=== PATIENT | female | born 1985 | race Caucasian/White ===

== ENCOUNTER → 2016-12-04 | Outpatient (CLI) | payer BC ==
[~2016-12-04] MED LIST: CELEXA40 MG PO; NAPROSYN500 MG PO; NO HOME MEDICATIONS; NORCO 325 MG-51 TAB PO; PREDNISONE20 MG PO; PROAIR HFA0.09 MG/AC IH; SINGULAIR 110 MG/TAB PO
== END ==
LOC: MC.RAD 14:00
DX: D24.1 Benign neoplasm of right breast (principal)

== ENCOUNTER 2017-09-24 18:30 | Emergency (ER) | payer BC ==
[~2017-09-24] VITALS: Ht 167.6 cm; Wt 115.9 kg
[2017-09-24 18:31] VITALS: TEMP 98.7
[2017-09-24] MEDS ORDERED: LEXAPRO 10MG10 MG PO (18:34)
[2017-09-24] MEDS ORDERED: CATAPRES0.3 MG PO (18:34)
[2017-09-24] MEDS ORDERED: BUSPAR10 MG PO (18:34)
[2017-09-24] MEDS ORDERED: ATIVAN 0.50.5 MG/TAB PO (18:35)
[2017-09-24] MEDS ORDERED: MELATONIN5 M1 PO (18:35)
[2017-09-24 19:15] LABS: BASO # 0.1 (0.0-0.2); BASO % 0.5 % (0.0-2.0); EOS # 0.2 (0.0-0.7); EOS % 1.9 % (0-4.0); GRAN % 62.6 % (42.2-75.2); HEMOGLOBIN 14.4 g/dl (12.5-16.0); LYMPH # 3.3 (1.2-3.4); LYMPH % 29.3 % (20.0-51.0); MEAN CELL VOLUME 88 fl (80.0-100.0); MEAN CORPUSCULAR HEMOGLOBIN 29 pg (27.0-31.0); MEAN CORPUSCULAR HGB CONC 34 g/dl (33.0-37.0); MEAN PLATELET VOLUME 10.3 fl (7.4-10.4); MONO # 0.6 (0.1-0.6); MONO % 5.4 % (1.7-9.3); PLATELET COUNT 309 K/mm3 (130-400); RED BLOOD COUNT 4.91 M/mm3 (4.10-5.30); REDCELL DISTRIBUTION WIDTH-CV 13.6 % (11.5-14.5)
[2017-09-24 19:41] LABS: ALBUMIN 4.2 gm/dL (3.5-5.0); BILIRUBIN,TOTAL 0.5 mg/dL (0.0-1.0); C-REACTIVE PROTEIN 1.9 mg/dL (0.0-0.9); CALCIUM 8.9 mg/dL (8.4-10.2); CREATININE, serum 0.62 mg/dL (0.52-1.25); POTASSIUM 3.9 mmol/L (3.4-5.0); TOTAL PROTEIN 7.1 gm/dL (6.4-8.2)
[2017-09-24] MEDS ORDERED: NORCO 325 MG-51 TAB PO (20:58)
[2017-09-24] MEDS ORDERED: ZOFRAN ODT4 MG PO (20:58)
[2017-09-24 21:13] VITALS: BP 134/70; PULSE 70
== END 2017-09-24 21:14 | disposition home or self-care (01) ==
LOC: COL.ER 18:30
PROVIDERS: Emergency Medicine
DX: K80.80 Other cholelithiasis without obstruction (principal); Z90.710 Acquired absence of both cervix and uterus
CPT/HCPCS: J2405; J2550; J7030

== ENCOUNTER 2017-09-26 09:38 | Day surgery (SDC) | payer BC ==
[2017-09-26] VITALS (7 sets, daily range): BP systolic 115–127; BP diastolic 45–87; PULSE 78–98; TEMP 97.7–98.2
[~2017-09-26] VITALS: Ht 167.6 cm; Wt 118.6 kg
[~2017-09-26 09:38] MED LIST changes: +ATIVAN 0.50.5 MG/TAB PO; +BUSPAR10 MG PO; +CATAPRES0.3 MG PO; +LEXAPRO 10MG10 MG PO; +MELATONIN5 M1 PO; +ZOFRAN ODT4 MG PO
[2017-09-26] MEDS ORDERED: ALBUTEROL SULFAT3 M3 IH (10:02)
[2017-09-26] MEDS ORDERED: NORCO 325 MG-51 TAB PO (14:08)
== END 2017-09-26 15:25 | disposition home or self-care (01) ==
LOC: SDCO 09:38
DX: K80.10 Calculus of gallbladder with chronic cholecystitis without obstruction (principal); F41.9 Anxiety disorder, unspecified; F32.9 Major depressive disorder, single episode, unspecified; J45.909 Unspecified asthma, uncomplicated; E66.9 Obesity, unspecified; Z68.41 Body mass index [BMI] 40.0-44.9, adult; Z87.891 Personal history of nicotine dependence; G47.33 Obstructive sleep apnea (adult) (pediatric); Z85.828 Personal history of other malignant neoplasm of skin; E28.2 Polycystic ovarian syndrome; Z90.710 Acquired absence of both cervix and uterus; Z91.041 Radiographic dye allergy status; Z88.0 Allergy status to penicillin; Z91.040 Latex allergy status
CPT/HCPCS: J0330; J0690; J1100; J1170; J1885; J2250; J2405; J2550; J2704; J2710; J3010; J7120

== ENCOUNTER 2018-03-15 17:25 | Emergency (ER) | payer BC ==
[~2018-03-15] VITALS: Ht 167.6 cm; Wt 120.5 kg
[~2018-03-15 17:25] MED LIST changes: +ALBUTEROL SULFAT3 M3 IH
[2018-03-15 18:06] LABS: COLLECTION METHOD CLEAN CATCH
[2018-03-15 18:12] LABS: PH 7 (5-8); SQUAMOUS EPITHELIAL 0-2 /hpf; URINE APPEARANCE Clear; URINE BACTERIA None Seen /hpf; URINE BILIRUBIN Negative (NEGATIVE); URINE BLOOD Negative (NEGATIVE); URINE COLOR Yellow; URINE GLUCOSE Negative (NEGATIVE); URINE KETONE Negative (NEGATIVE); URINE LEUKOCYTE ESTERASE Negative (NEGATIVE); URINE NITRATE Negative (NEGATIVE); URINE PROTEIN(semi-quant) Negative (NEGATIVE); URINE RBC 0-2 /hpf; URINE UROBILINOGEN Negative (NEGATIVE)
[2018-03-15 18:28] LABS: BASO # 0.1 (0.0-0.2); BASO % 0.3 % (0.0-2.0); EOS # 0.1 (0.0-0.7); EOS % 0.4 % (0-4.0); GRAN # 14.5 (1.4-6.5); GRAN % 84.8 % (42.2-75.2); HEMATOCRIT 41.4 % (37.0-47.0); HEMOGLOBIN 14.2 g/dl (12.5-16.0); LYMPH # 1.7 (1.2-3.4); LYMPH % 9.7 % (20.0-51.0); MEAN CELL VOLUME 85 fl (80.0-100.0); MEAN CORPUSCULAR HEMOGLOBIN 29 pg (27.0-31.0); MEAN CORPUSCULAR HGB CONC 34 g/dl (33.0-37.0); MEAN PLATELET VOLUME 10.2 fl (7.4-10.4); MONO # 0.8 (0.1-0.6); MONO % 4.4 % (1.7-9.3); PLATELET COUNT 338 K/mm3 (130-400); REDCELL DISTRIBUTION WIDTH-CV 13.1 % (11.5-14.5)
[2018-03-15 18:48] LABS: ALBUMIN 4.2 gm/dL (3.5-5.0); BILIRUBIN,TOTAL 0.5 mg/dL (0.0-1.0); C-REACTIVE PROTEIN 3.3 mg/dL (0.0-0.9); CALCIUM 9.3 mg/dL (8.4-10.2); CREATININE, serum 0.64 mg/dL (0.52-1.25); POTASSIUM 3.5 mmol/L (3.4-5.0); TOTAL PROTEIN 7.5 gm/dL (6.4-8.2)
[2018-03-15] MEDS ORDERED: NORCO 325 MG-51 TAB PO (19:41)
[2018-03-15] MEDS ORDERED: ZOFRAN ODT4 MG PO (19:41)
[2018-03-15 20:00] VITALS: BP 118/71; PULSE 99; TEMP 100.2
== END 2018-03-15 20:05 | disposition home or self-care (01) ==
LOC: COL.ER 17:25
PROVIDERS: Emergency Medicine
DX: D72.829 Elevated white blood cell count, unspecified (principal); R10.31 Right lower quadrant pain; F32.9 Major depressive disorder, single episode, unspecified; Z90.710 Acquired absence of both cervix and uterus; Z98.890 Other specified postprocedural states; Z90.49 Acquired absence of other specified parts of digestive tract; Z88.0 Allergy status to penicillin
CPT/HCPCS: J1200; J1885; J2405; J2930; J7030; Q9967

== ENCOUNTER 2019-11-13 13:57 | Emergency (ER) | payer OTHER ==
[~2019-11-13] VITALS: Ht 167.6 cm; Wt 113.6 kg
[2019-11-13 14:11] VITALS: TEMP 97.8
[2019-11-13] MEDS ORDERED: PREDNISONE20 MG PO ×2 (14:22→14:25)
[2019-11-13] MEDS ORDERED: VISTARIL 2525 MG/CAP (14:22)
[2019-11-13] MEDS ORDERED: ADDERALL15 MG PO (14:24)
[2019-11-13] MEDS ORDERED: NEURONTIN100 MG/CAP (14:24)
[2019-11-13] MEDS ORDERED: CYMBALTA 30MG30 MG PO (14:24)
[2019-11-13] MEDS ORDERED: VOLTAREN 75 DR75 MG PO (14:25)
[2019-11-13 15:32] VITALS: BP 138/71; PULSE 103
== END 2019-11-13 15:25 | disposition home or self-care (01) ==
LOC: COL.ER 13:57
DX: T78.40XA Allergy, unspecified, initial encounter (principal); M79.7 Fibromyalgia
CPT/HCPCS: J2930

== ENCOUNTER 2020-07-08 11:14 | Inpatient (IN) | payer OTHER ==
[~2020-07-08] VITALS: Ht 167.6 cm; Wt 124.8 kg
[~2020-07-08 11:14] MED LIST changes: +ADDERALL15 MG PO; -ALBUTEROL SULFAT3 M3 IH; +ALBUTEROL0.83 MG/ML IH; +CYMBALTA 30MG30 MG PO; +NEURONTIN100 MG/CAP; +PHENERGAN 25 TA25 MG PO; +VISTARIL 2525 MG/CAP; +VOLTAREN 75 DR75 MG PO
[2020-07-08 14:16] VITALS: BP 127/68; PULSE 105; TEMP 99.4
[2020-07-08 16:31] LABS: INR 1.2 (0.8-3.0); LACTATE DEHYDROGENASE 727 U/L (313-618)
[2020-07-08 16:42] LABS: C-REACTIVE PROTEIN 14.5 mg/dL (0.0-0.9); TROPONIN-I < 0.012 ng/mL (0.000-0.035)
[2020-07-08 17:40] VITALS: BP 134/64; BP 134/66; PULSE 81; TEMP 97.9
--- NOTE | 2020-07-08 18:40 | NUR ---
Report received from Melody CONTRERAS. Pt lying in bed watching tv. Denies needs at this time. Call light in reach.
--- NOTE | 2020-07-08 21:15 | NUR ---
Shift assessment complete. Pt lying in bed. Currently on room air with O2 sats in mid 90s. Denies SOA at rest, reports mild SOA when ambulating to bathroom and with deep breaths. Dry cough noted. Lungs clear to auscultation, heart rate and rhythm regular, A&Ox4. Reports mild chronic pain to BLE. PRN Tylenol administered. Refilled pt's water pitcher. Denies other needs at this time. Call light in reach.
[2020-07-09 00:06] VITALS: BP 136/72; PULSE 70; TEMP 98
[2020-07-09 03:53] VITALS: BP 130/74; PULSE 84; TEMP 97.8
--- NOTE | 2020-07-09 07:41 | NUR ---
Slept throughout night. Complained of chills this AM, remains afebrile. Used 2L O2 intermittently throughout night.
[2020-07-09 08:19] LABS: BILIRUBIN,TOTAL 0.4 mg/dL (0.0-1.0); CALCIUM 9.3 mg/dL (8.4-10.2); CREATININE, serum 0.57 (0.52-1.25); MAGNESIUM 2.3 mg/dL (1.6-2.3); POTASSIUM 3.9 mmol/L (3.4-5.0); TOTAL PROTEIN 7.4 gm/dL (6.4-8.2)
[2020-07-09 08:26] LABS: HEMATOCRIT 40.5 % (37.0-47.0); HEMOGLOBIN 13.4 g/dl (12.5-16.0); MEAN CELL VOLUME 86 fl (80.0-100.0); MEAN CORPUSCULAR HEMOGLOBIN 29 pg (27.0-31.0); MEAN CORPUSCULAR HGB CONC 33 g/dl (33.0-37.0); MEAN PLATELET VOLUME 10.4 fl (7.4-10.4); PLATELET COUNT 298 K/mm3 (130-400); RED BLOOD COUNT 4.69 M/mm3 (4.10-5.30); REDCELL DISTRIBUTION WIDTH-CV 12.8 % (11.5-14.5)
[2020-07-09 08:56] LABS: BAND 7 % (0-10); LYMPHOCYTE 18 % (20.0-51.0); METAMYELOCYTE 1 % (0-0); NEUTROPHILS 66 % (42.0-75.2)
[2020-07-09 08:57] LABS: PLATELET ESTIMATE NORMAL (NORMAL)
[2020-07-09 09:12] VITALS: BP 162/82; PULSE 80; TEMP 97.9
--- NOTE | 2020-07-09 09:29 | NUR ---
Pt assessment complete. Pt is sitting up in bed eating breakfast upon entry, she is A/O x3. Flat affect. Her breathing is even and unlabored on 2L O2 via NC. Pt wearing O2 for comfort. Continues to have productive cough. No fever has been present but patient feels clammy. No N/V. Reports loose stools. No needs at this time. Call light within reach. Will continue to monitor.
--- NOTE | 2020-07-09 09:57 | NUR ---
The patient is positive for COVID. SARI contacted the patient's phone to complete intake. The patient lives in [place] with her , Marco Antonio (ph#[phone]), and their son. She reports independence with ADLs and does not have any DME. The patient's PCP is Dr. Donn Albert and [facility]. She reports no difficulties obtaining her meds. The patient does not have a DPOA-HC completed. The patient plans to return home with her family. SARI contacted and reviewed the above information with the patient's , Marco Antonio. Marco Antonio confirmed the above information and did not have any concerns with the patient returning back home upon discharge. The patient is currently requiring 2 liters of oxygen. SW to continue to monitor oxygen needs.
[2020-07-09 12:14] VITALS: BP 168/92; PULSE 70; TEMP 98
[2020-07-09 17:21] VITALS: BP 162/100; PULSE 66; TEMP 98
--- NOTE | 2020-07-09 18:32 | NUR ---
Pt not requiring oxygen due to O2 sat, but is occasionally wearing it for comfort. Had no pain through the day. Afebrile. No needs at this time. Call light within reach.
--- NOTE | 2020-07-09 18:40 | NUR ---
Report received from DIANE Holcomb. Pt lying in bed, denies needs at this time. Will continue to monitor.
[2020-07-09 20:00] VITALS: BP 188/102; PULSE 73; TEMP 98
--- NOTE | 2020-07-09 22:30 | NUR ---
Shift assessment complete. Pt lying supine in bed, 2L O2 by NC currently on. Denies SOA at rest, reports SOA when ambulating to restroom present but improving. Dry cough with deep breaths. Lungs clear to auscultation. Heart rate and rhythm regular. A&Ox4. Reports mild pain to left hip, PRN Tylenol administered. Blood pressures continuing to increase with last BP at 188/102. Pt denies headache or chest pain. BRETT Cuellar notified. PRN Hydralazine ordered for SBP >180 or DBP >100. Denies other needs at this time. Will continue to monitor.
[2020-07-10] VITALS: BP 190/108; PULSE 68; TEMP 98.1
[2020-07-10 01:53] VITALS: BP 122/84
--- NOTE | 2020-07-10 02:00 | NUR ---
BP 190/108. 10 MG IV APRESOLINE ADMINISTERED. F/U BP 122/84.
[2020-07-10 04:10] VITALS: BP 122/86; PULSE 71; TEMP 97.7
[2020-07-10 07:54] VITALS: BP 132/92; PULSE 73; TEMP 97.8
--- NOTE | 2020-07-10 08:03 | NUR ---
Pt assessment complete. Pt sleeping upon entry, arouses to voice. Is oriented x4. Currently wearing 2L O2 via NC for comfort although O2 sat >95%. Reports no productivity in cough. Denies pain. Denies N/V/D. No needs a this time, breakfast at bedside.
[2020-07-10] MEDS ORDERED: TYLENOL 325MG325 MG PO (09:53)
[2020-07-10] MEDS ORDERED: MONODOX100 PO (09:53)
[2020-07-10] MEDS ORDERED: DECADRON6 MG PO (09:54)
[2020-07-10 12:18] VITALS: BP 136/90; PULSE 79; TEMP 98
--- NOTE | 2020-07-10 13:28 | NUR ---
Discharge paperwork and instructions reviewed with patient. All questions answered at this time. IV to L hand dc'd catheter tip intact. Pt wheeled out using precautions at this time.
== END 2020-07-10 13:28 | disposition home or self-care (01) | DRG 177 ==
LOC: MEDICAL 11:14
PROVIDERS: ADMIT Internal Medicine
DX: U07.1 COVID-19 (principal); J96.01 Acute respiratory failure with hypoxia; Z68.41 Body mass index [BMI] 40.0-44.9, adult; J45.909 Unspecified asthma, uncomplicated; E66.01 Morbid (severe) obesity due to excess calories; M79.7 Fibromyalgia; F41.9 Anxiety disorder, unspecified; F32.9 Major depressive disorder, single episode, unspecified; F17.210 Nicotine dependence, cigarettes, uncomplicated; Z88.0 Allergy status to penicillin
CPT/HCPCS: 99223-AI; 99232-AI; 99239; J0360; J1650; J8540

== ENCOUNTER 2022-05-03 13:37 | Emergency (ER) | payer OTHER ==
[~2022-05-03] VITALS: Ht 167.6 cm; Wt 120.5 kg
[~2022-05-03 13:37] MED LIST changes: +DECADRON6 MG PO; +MONODOX100 PO; +TYLENOL 325MG325 MG PO
[2022-05-03 13:47] VITALS: TEMP 97.5
[2022-05-03] MEDS ORDERED: PREDNISONE20 MG PO (15:46)
[2022-05-03] MEDS ORDERED: EPIPEN 2-PAK1 MG/ML IM (15:46)
[2022-05-03 15:56] VITALS: BP 135/85; PULSE 89
== END 2022-05-03 15:58 | disposition home or self-care (01) ==
LOC: COL.ER 13:37
DX: T78.40XA Allergy, unspecified, initial encounter (principal); E66.9 Obesity, unspecified; Z91.040 Latex allergy status
CPT/HCPCS: J1200; J2930; J7030